=== PATIENT | female | born 1965 | race American Indian/Alaskan Native ===

== ENCOUNTER 2017-07-31 13:13 | Observation (INO) | payer MEDICAID, OTHER ==
[2017-07-31 13:49] VITALS: BMI 32.5
[2017-07-31 14:13] LABS: BASO # 0.1 K/uL (0.0-0.2); BASO % 0.8 % (0.0-2.0); EOS # 0.1 K/uL (0.0-0.7); EOS % 1.1 % (0.0-4.0); HEMOGLOBIN 14.8 g/dL (11.0-16.0); LYMPH # 3.8 K/uL (1.0-4.3); MEAN CELL VOLUME 85.3 fL (81.0-99.0); MEAN CORPUSCULAR HEMOGLOBIN 29.5 pg (27.0-31.0); MEAN CORPUSCULAR HGB CONC 34.6 g/dL (33.0-37.0); MEAN PLATELET VOLUME 7.9 fL (7.2-11.7); MONO # 0.7 K/uL (0.0-0.8); MONO % 8.2 % (0.0-10.0); NEUT # 3.9 K/uL (1.8-7.0); NEUT % 45.9 % (50.0-75.0); RBC 5.03 Mil/uL (3.80-5.20); RED CELL DISTRIBUTION WIDTH 13.8 % (11.5-14.5); WHITE BLOOD COUNT 8.6 K/uL (4.8-10.8)
[2017-07-31 14:24] LABS: ALT/SGPT 57 U/L (9-52); AST/SGOT 54 U/L (14-36); BLOOD UREA NITROGEN 15 mg/dL (7-17); CALCIUM 9.1 mg/dl (8.6-10.4); GFR AFRICAN-AMERICAN > 60; GFR NON-AFRICAN AMERICAN > 60
[2017-07-31 14:34] LABS: HCG,QUALITATIVE URINE NEGATIVE (NEGATIVE)
[2017-07-31 14:36] LABS: SQUAMOUS EPITHIAL 4 /hpf (0-5); URINE BACTERIA RARE (<OCC); URINE BILIRUBIN NEGATIVE (NEGATIVE); URINE BLOOD NEGATIVE (NEGATIVE); URINE CLARITY Hazy (Clear); URINE COLOR Yellow (YELLOW); URINE GLUCOSE (UA) NORMAL (Normal); URINE LEUKOCYTE ESTERASE 3+ Leu/uL (Negative); URINE NITRATE NEGATIVE (NEGATIVE); URINE PROTEIN NEGATIVE (NEGATIVE); URINE UROBILINOGEN NORMAL mg/dL (0.2-1.0)
[2017-07-31 14:48] LABS: BARBITURATES, UR NEGATIVE (NEGATIVE); BENZODIAZEPINES, UR NEGATIVE (NEGATIVE); PHENCYCLIDINE, UR NEGATIVE (NEGATIVE)
[2017-07-31 15:07] LABS: OPIATES, UR POSITIVE (NEGATIVE)
--- NOTE | 2017-07-31 15:18 | C.PDOC ---
History Of Present Illness 51 y/o female with PMHx of DM and HTN presents to ED requesting detox from heroin and Opioids, last used earlier today. Patient states she took her Insulin and DM medication but admits to not taking HTN medication- normally takes CLonidine 0.3 mg BID. Patient denies history of seizures or any other complaints at this time. Pt is asymptomatic; denies headache, visual disturbances, nausea, vomiting. Time Seen by Provider: 07/31/17 14:00 Chief Complaint (Nursing): Substance Abuse History Per: Patient History/Exam Limitations: no limitations Onset/Duration Of Symptoms: Days Current Symptoms Are (Timing): Still Present Suicide/Self Injury Attempted (Context): None Past Medical History Reviewed: Historical Data, Nursing Documentation, Vital Signs Vital Signs: Last Vital Signs Temp 98.1 F 08/02/17 07:25 Pulse 79 08/02/17 07:25 Resp 20 08/02/17 07:25 BP 140/107 H 08/02/17 07:35 Pulse Ox 99 08/02/17 07:25 - Medical History PMH: Bipolar Disorder, Depression, Schizophrenia Surgical History: No Surg Hx Family History: States: No Known Family Hx - Social History Hx Alcohol Use: No Hx Substance Use: Yes - Immunization History Hx Tetanus Toxoid Vaccination: No Hx Influenza Vaccination: No Hx Pneumococcal Vaccination: No Review Of Systems Constitutional: Negative for: Fever, Chills Cardiovascular: Negative for: Chest Pain Gastrointestinal: Negative for: Nausea, Vomiting Skin: Negative for: Rash Psych: Negative for: Suicidal ideation, Withdrawal Physical Exam - Physical Exam Appears: Non-toxic, No Acute Distress Skin: Warm, Dry, No Rash Head: Atraumatic, Normacephalic Eye(s): bilateral: Normal Inspection, EOMI Nose: Normal Oral Mucosa: Moist Neck: Normal ROM, Supple Chest: Symmetrical Cardiovascular: Rhythm Regular Respiratory: Normal Breath Sounds, No Accessory Muscle Use, No Rales, No Rhonchi , No Wheezing Gastrointestinal/Abdominal: Soft, No Tenderness, No Guarding, No Rebound Neurological/Psych: Oriented x3 ED Course And Treatment - Laboratory Results Result Diagrams: 07/31/17 14:09 08/01/17 08:33 O2 Sat by Pulse Oximetry: 98 (RA) Pulse Ox Interpretation: Normal Progress Note: UA, Blood work ordered. On re evaluation patient admits to having urinary frequency, dysuria but denies itching or vaginal discharge. D/W patient UA results, will be treated for UTI and is requesting for yeast prophylaxis secondary to antibiotic use. Diflucan and Macrobid ordered. Patient evaluated by crisis and discussed case with Dr. Bennett, who agreed upon admission to his service. Case discussed with Dr Dunbar, agreed upon plan and management of HTN. Disposition - Disposition Disposition: HOSPITALIZED Disposition Time: 19:00 Condition: STABLE - Clinical Impression Clinical Impression: Opioid use disorder, severe, dependence, HTN (hypertension) - PA / BRICK WASHER / Resident Statement MD/DO has reviewed & agrees with the documentation as recorded. - Scribe Statement The provider has reviewed the documentation as recorded by the Jaydaibelba Zuluaga All medical record entries made by the Stephane were at my direction and personally dictated by me. I have reviewed the chart and agree that the record accurately reflects my personal performance of the history, physical exam, medical decision making, and the department course for this patient. I have also personally directed, reviewed, and agree with the discharge instructions and disposition.
[2017-07-31] MEDS ORDERED: Buprenorphine Hydrochloride 2 mg SL ONE ×3 (18:58→20:00)
--- NOTE | 2017-07-31 19:13 | PCM.BM ---
<Arabella Mcmahan - Last Filed: 07/31/17 19:12> Treatment Plan Problems - Problems identified on initial assessmt Opiates dependence Date Initiated: 07/31/17 Time Initiated: 18:30 Assessment reference: NA Status: Active Treatment assets and liabiliti Patient Assests: cooperative, ADL independent, negotiates basic needs Patient Liabilities: substance abuse - Milieu Protocol Maintain good personal hygiene: daily Encourage regular showers, daily Remind patient to perform daily oral care, daily Assist patient to perform ADL's Maintain personal safety: every shift Educate patient to report safety concerns to staff, every shift Monitor environment for contraband/sharps Medication safety: Monitor for expected outcome, potential side effects: every shift, Assess barriers to learning: every shift, Assess readiness for medication education: every shift <Jennifer Bennett - Last Filed: 08/02/17 13:15> - Diagnosis (1) Opioid use disorder, severe, dependence Status: Acute Interventions: 08/02/17 13:15 * Assess 7x/week regarding severity of withdrawal * Educate regarding risks, benefits, side effects and alternatives of medications * Use Motivational Interviewing for abstinence * Use CBT for relapse prevention * Medication management for withdrawal symptoms * Encourage medication assisted treatment *
--- NOTE | 2017-08-01 00:55 | CP.PCM.CON ---
<Criss Hussein - Last Filed: 08/01/17 01:48> History of Present Illness - History of Present Illness History of Present Illness: Medicine Consult HPI: (During the encounter, patient was agitated and wanted to be left alone) Patient is a 51 year old AA female with past medical history of DM, HTN, Insomnia, Arthritis, herniated disc, Bipolar Disorder, depression and schizophrenia who presents to the ED requesting for heroin detox. Medicine consult was placed for hypertension refractory to medication ( Clonidine). Patient is a symptomatic and denies headache, visual disturbances, nausea, vomiting. During the encounter, patient stated that she wanted to be left alone and that she is fine; refused further questioning as well as the physical exam. PMHx: DM, HTN, Insomnia, Arthritis, herniated disc, Bipolar Disorder, Depression , Schizophrenia PSHx: Denies FHx: Unknown Medications: Patient reports that she takes medication for DM, HTN, Insomnia, but she does not recall the medications Allergies: NKDA Social Hx: admits to 1 pack of tobacco use per week, (a pint of ETOH daily as per nursing) and periodic heroin use Review of Systems - Review of Systems Review of Systems: limited due to patient's agitation and was uncooperative - Constitutional Constitutional: absent: Chills, Fever, Headache - EENT Eyes: absent: Change in Vision - Gastrointestinal Gastrointestinal: absent: Nausea, Vomiting Past Patient History - Past Social History Smoking Status: Current Some Days Smoker - CARDIAC Hx Cardiac Disorders: No Hx Hypertension: No - PULMONARY Hx Tuberculosis: Yes - NEUROLOGICAL HX Cerebrovascular Accident: No Hx Seizures: No - ENDOCRINE/METABOLIC Hx Diabetes Mellitus Type 2: Yes - HEMATOLOGICAL/ONCOLOGICAL Hx Cancer: No Hx Human Immunodeficiency Virus (HIV): No - MUSCULOSKELETAL/RHEUMATOLOGICAL Hx Falls: No - GENITOURINARY/GYNECOLOGICAL Hx Sexually Transmitted Disorders: No - PSYCHIATRIC Hx Bipolar Disorder: Yes Hx Depression: Yes Hx Schizophrenia: Yes Hx Substance Use: Yes - SURGICAL HISTORY Hx Surgeries: No Meds Allergies/Adverse Reactions: Allergies Allergy/AdvReac Type Severity Reaction Status Date / Time No Known Allergies Allergy Verified 07/31/17 13:48 - Medications Medications: Current Medications Clonidine HCl (Catapres) 0.1 mg PO Q4 PRN PRN Reason: OPiates withdrawal Last Admin: 07/31/17 20:08 Dose: 0.1 mg Hydroxyzine HCl (Atarax) 50 mg PO Q6H PRN PRN Reason: Anxiety Ibuprofen (Motrin Tab) 600 mg PO Q6H PRN PRN Reason: Pain, moderate (4-7) Metformin HCl (Glucophage) 500 mg PO BID JAYLENE Nitrofurantoin Macrocrystals (Macrobid) 100 mg PO Q12H JAYLENE Pneumococcal Polyvalent Vaccine (Pneumovax 23 Vaccine) 0.5 ml IM .ONCE ONE Stop: 08/03/17 10:01 Quetiapine Fumarate (Seroquel) 50 mg PO HS JAYLENE Last Admin: 07/31/17 22:16 Dose: Not Given Trazodone HCl (Desyrel) 100 mg PO HS PRN PRN Reason: Insomnia Physical Exam - Constitutional Additional comments: At this point of the encounter, patient wanted to be left alone and requesting for the encounter to end Results - Vital Signs Recent Vital Signs: Last Vital Signs Temp 98.6 F 07/31/17 21:28 Pulse 77 08/01/17 00:00 Resp 18 08/01/17 00:00 BP 170/127 H 08/01/17 00:00 Pulse Ox 97 08/01/17 00:00 - Labs Result Diagrams: 07/31/17 14:09 07/31/17 14:09 Labs: Laboratory Results - last 24 hr 07/31/17 07/31/17 07/31/17 14:09 14:09 14:20 WBC 8.6 RBC 5.03 Hgb 14.8 Hct 42.9 MCV 85.3 MCH 29.5 MCHC 34.6 RDW 13.8 Plt Count 320 MPV 7.9 Neut % (Auto) 45.9 L Lymph % (Auto) 44.0 H [place] % (Auto) 8.2 Eos % (Auto) 1.1 Baso % (Auto) 0.8 Neut # 3.9 Lymph # 3.8 [place] # 0.7 Eos # 0.1 Baso # 0.1 Sodium 136 Potassium 4.4 Chloride 99 Carbon Dioxide 33 H Anion Gap 9 L BUN 15 Creatinine 0.9 Est GFR ( Amer) > 60 Est GFR (Non-Af Amer) > 60 Random Glucose 94 Calcium 9.1 Total Bilirubin 0.5 AST 54 H ALT 57 H Alkaline Phosphatase 108 Total Protein 7.9 Albumin 4.0 Globulin 4.0 H Albumin/Globulin Ratio 1.0 Urine Color Yellow Urine Clarity Hazy Urine pH 5.0 Ur Specific [place] 1.023 Urine Protein Negative Urine Glucose (UA) Normal Urine Ketones Negative Urine Blood Negative Urine Nitrate Negative Urine Bilirubin Negative Urine Urobilinogen Normal Ur Leukocyte Esterase 3+ H Urine WBC (Auto) 14 H Urine RBC (Auto) 2 Ur Squamous Epith Cells 4 Urine Bacteria Rare Urine HCG, Qual Negative Urine Opiates Screen Urine Methadone Screen Ur Barbiturates Screen Ur Phencyclidine Scrn Ur Amphetamines Screen U Benzodiazepines Scrn U Oth Cocaine Metabols U Cannabinoids Screen Alcohol, Quantitative < 10 07/31/17 14:20 WBC RBC Hgb Hct MCV MCH MCHC RDW Plt Count MPV Neut % (Auto) Lymph % (Auto) [place] % (Auto) Eos % (Auto) Baso % (Auto) Neut # Lymph # [place] # Eos # Baso # Sodium Potassium Chloride Carbon Dioxide Anion Gap BUN Creatinine Est GFR ( Amer) Est GFR (Non-Af Amer) Random Glucose Calcium Total Bilirubin AST ALT Alkaline Phosphatase Total Protein Albumin Globulin Albumin/Globulin Ratio Urine Color Urine Clarity Urine pH Ur Specific [place] Urine Protein Urine Glucose (UA) Urine Ketones Urine Blood Urine Nitrate Urine Bilirubin Urine Urobilinogen Ur Leukocyte Esterase Urine WBC (Auto) Urine RBC (Auto) Ur Squamous Epith Cells Urine Bacteria Urine HCG, Qual Urine Opiates Screen Positive H Urine Methadone Screen Negative Ur Barbiturates Screen Negative Ur Phencyclidine Scrn Negative Ur Amphetamines Screen Negative U Benzodiazepines Scrn Negative U Oth Cocaine Metabols Negative U Cannabinoids Screen Negative Alcohol, Quantitative Assessment & Plan (1) Elevated blood pressure reading Assessment and Plan: possibly secondary to substance withdrawal * Labetalol 100mg PO once * Clonidine 0.1mg PO Q4H * Will reevaluate in treat plan am when patient is more cooperative Status: Acute (2) Substance abuse Assessment and Plan: Subtex detox Status: Acute (3) Insomnia Assessment and Plan: Trazadone 100mg PO HS Seroquel 50mg PO HS Status: Acute (4) Urinary tract infection Assessment and Plan: Macrobid 100mg PO Q12H Status: Acute (5) Diabetes mellitus Assessment and Plan: Metformin 500ng PO BID Status: Acute (6) History of anxiety disorder Assessment and Plan: Hydroxyzine 50mg PO Q6H PRN Case and plans discussed with attending, Dr. Elizabeth Status: Acute <Adithya Elizabeth - Last Filed: 08/01/17 06:06> Meds - Medications Medications: Current Medications Clonidine HCl (Catapres) 0.1 mg PO Q4 PRN PRN Reason: OPiates withdrawal Last Admin: 07/31/17 20:08 Dose: 0.1 mg Hydroxyzine HCl (Atarax) 50 mg PO Q6H PRN PRN Reason: Anxiety Last Admin: 08/01/17 01:05 Dose: 50 mg Ibuprofen (Motrin Tab) 600 mg PO Q6H PRN PRN Reason: Pain, moderate (4-7) Metformin HCl (Glucophage) 500 mg PO BID JAYLENE Nitrofurantoin Macrocrystals (Macrobid) 100 mg PO Q12H JAYLENE Pneumococcal Polyvalent Vaccine (Pneumovax 23 Vaccine) 0.5 ml IM .ONCE ONE Stop: 08/03/17 10:01 Quetiapine Fumarate (Seroquel) 50 mg PO HS JAYLENE Last Admin: 07/31/17 22:16 Dose: Not Given Trazodone HCl (Desyrel) 100 mg PO HS PRN PRN Reason: Insomnia Last Admin: 08/01/17 01:05 Dose: 100 mg Results - Vital Signs Recent Vital Signs: Last Vital Signs Temp 98.6 F 07/31/17 21:28 Pulse 77 08/01/17 00:00 Resp 18 08/01/17 00:00 BP 170/127 H 08/01/17 00:00 Pulse Ox 97 08/01/17 00:00 - Labs Result Diagrams: 07/31/17 14:09 07/31/17 14:09 Labs: Laboratory Results - last 24 hr 07/31/17 07/31/17 07/31/17 14:09 14:09 14:20 WBC 8.6 RBC 5.03 Hgb 14.8 Hct 42.9 MCV 85.3 MCH 29.5 MCHC 34.6 RDW 13.8 Plt Count 320 MPV 7.9 Neut % (Auto) 45.9 L Lymph % (Auto) 44.0 H [place] % (Auto) 8.2 Eos % (Auto) 1.1 Baso % (Auto) 0.8 Neut # 3.9 Lymph # 3.8 [place] # 0.7 Eos # 0.1 Baso # 0.1 Sodium 136 Potassium 4.4 Chloride 99 Carbon Dioxide 33 H Anion Gap 9 L BUN 15 Creatinine 0.9 Est GFR ( Amer) > 60 Est GFR (Non-Af Amer) > 60 Random Glucose 94 Calcium 9.1 Total Bilirubin 0.5 AST 54 H ALT 57 H Alkaline Phosphatase 108 Total Protein 7.9 Albumin 4.0 Globulin 4.0 H Albumin/Globulin Ratio 1.0 Urine Color Yellow Urine Clarity Hazy Urine pH 5.0 Ur Specific [place] 1.023 Urine Protein Negative Urine Glucose (UA) Normal Urine Ketones Negative Urine Blood Negative Urine Nitrate Negative Urine Bilirubin Negative Urine Urobilinogen Normal Ur Leukocyte Esterase 3+ H Urine WBC (Auto) 14 H Urine RBC (Auto) 2 Ur Squamous Epith Cells 4 Urine Bacteria Rare Urine HCG, Qual Negative Urine Opiates Screen Urine Methadone Screen Ur Barbiturates Screen Ur Phencyclidine Scrn Ur Amphetamines Screen U Benzodiazepines Scrn U Oth Cocaine Metabols U Cannabinoids Screen Alcohol, Quantitative < 10 07/31/17 14:20 WBC RBC Hgb Hct MCV MCH MCHC RDW Plt Count MPV Neut % (Auto) Lymph % (Auto) [place] % (Auto) Eos % (Auto) Baso % (Auto) Neut # Lymph # [place] # Eos # Baso # Sodium Potassium Chloride Carbon Dioxide Anion Gap BUN Creatinine Est GFR ( Amer) Est GFR (Non-Af Amer) Random Glucose Calcium Total Bilirubin AST ALT Alkaline Phosphatase Total Protein Albumin Globulin Albumin/Globulin Ratio Urine Color Urine Clarity Urine pH Ur Specific [place] Urine Protein Urine Glucose (UA) Urine Ketones Urine Blood Urine Nitrate Urine Bilirubin Urine Urobilinogen Ur Leukocyte Esterase Urine WBC (Auto) Urine RBC (Auto) Ur Squamous Epith Cells Urine Bacteria Urine HCG, Qual Urine Opiates Screen Positive H Urine Methadone Screen Negative Ur Barbiturates Screen Negative Ur Phencyclidine Scrn Negative Ur Amphetamines Screen Negative U Benzodiazepines Scrn Negative U Oth Cocaine Metabols Negative U Cannabinoids Screen Negative Alcohol, Quantitative Assessment & Plan - Date & Time Date: 08/01/17 (I have seen and examined the patient. I agree with the findings and plan of care as documented by Dr. Hussein. Patient with elevated BP reading. Continue Clonidine and add Labetalol. Adjust as necessary. Continue home med for history of diabetes. Macrobid for UTI. Monitor for acute changes.) Time: 06:05 Attending/Attestation - Attestation I have personally seen and examined this patient.: Yes I have fully participated in the care of the patient.: Yes I have reviewed all pertinent clinical information: Yes
[2017-08-01 09:14] LABS: ALBUMIN 3.6 g/dL (3.5-5.0); ALT/SGPT 49 U/L (9-52); AST/SGOT 43 U/L (14-36); BLOOD UREA NITROGEN 13 mg/dL (7-17); CALCIUM 8.7 mg/dl (8.6-10.4); GFR AFRICAN-AMERICAN > 60; GFR NON-AFRICAN AMERICAN > 60
[2017-08-01] MEDS ORDERED: Buprenorphine Hydrochloride 2 mg SL SCH (10:00)
--- NOTE | 2017-08-01 12:59 | CP.PCM.PN ---
Subjective - Date & Time of Evaluation Date of Evaluation: 08/01/17 Time of Evaluation: 08:55 - Subjective Subjective: Dr. Gomez's Service, [place]ino Wilkerson PGY-1 Patient was seen and examined at bedside. Per nursing no acute events occurred overnight. The patient is tolerating her diet with no complaints. The patient is passing her bowels with no issue. The patient denies any chest pain, lightheadedness, dizziness, changes in vision, fevers, chills, abdominal pain, or any other complaints. Objective - Vital Signs/Intake and Output Vital Signs (last 24 hours): Temp Pulse Resp BP Pulse Ox 98.2 F 88 14 171/115 H 98 08/01/17 06:07 08/01/17 12:11 08/01/17 06:07 08/01/17 12:11 08/01/17 06:07 - Medications Medications: Current Medications Buprenorphine HCl (Subutex) 8 mg SL DAILY [facility] PRN Reason: Taper Stop: 08/05/17 09:59 Last Admin: 08/01/17 09:09 Dose: 8 mg Clonidine HCl (Catapres) 0.3 mg PO BID [facility] Hydrochlorothiazide (Microzide) 12.5 mg PO DAILY [facility] Hydroxyzine HCl (Atarax) 50 mg PO Q6H PRN PRN Reason: Anxiety Last Admin: 08/01/17 01:05 Dose: 50 mg Ibuprofen (Motrin Tab) 600 mg PO Q6H PRN PRN Reason: Pain, moderate (4-7) Lisinopril (Zestril) 5 mg PO DAILY [facility] Metformin HCl (Glucophage) 500 mg PO BID [facility] Last Admin: 08/01/17 09:09 Dose: 500 mg Nitrofurantoin Macrocrystals (Macrobid) 100 mg PO Q12H [facility] Last Admin: 08/01/17 09:09 Dose: 100 mg Pneumococcal Polyvalent Vaccine (Pneumovax 23 Vaccine) 0.5 ml IM .ONCE ONE Stop: 08/03/17 10:01 Quetiapine Fumarate (Seroquel) 50 mg PO HS [facility] Last Admin: 07/31/17 22:16 Dose: Not Given Trazodone HCl (Desyrel) 100 mg PO HS PRN PRN Reason: Insomnia Last Admin: 08/01/17 01:05 Dose: 100 mg - Labs Labs: 07/31/17 14:09 08/01/17 08:33 - Head Exam Head Exam: ATRAUMATIC, NORMAL INSPECTION, NORMOCEPHALIC - Eye Exam Eye Exam: EOMI, Normal appearance, PERRL. absent: Periorbital tenderness Pupil Exam: NORMAL ACCOMODATION, PERRL. absent: Irregular, Unequal - ENT Exam ENT Exam: Mucous Membranes Moist, Normal Oropharynx - Neck Exam Neck Exam: Normal Inspection. absent: Lymphadenopathy, Thyromegaly - Respiratory Exam Respiratory Exam: Clear to Ausculation Bilateral, NORMAL BREATHING PATTERN. absent: Chest Wall Tenderness, Prolonged Expiratory Phase, Respiratory Distress - Cardiovascular Exam Cardiovascular Exam: REGULAR RHYTHM, RRR, +S1, +S2. absent: Gallop, Rubs - GI/Abdominal Exam GI & Abdominal Exam: Soft, Normal Bowel Sounds. absent: Rigid, Hyperactive Bowel Sounds - Extremities Exam Extremities Exam: Full ROM. absent: Pedal Edema - Back Exam Back Exam: NORMAL INSPECTION. absent: CVA tenderness (L), CVA tenderness (R), paraspinal tenderness - Neurological Exam Neurological Exam: Alert, Awake, CN II-XII Intact, Normal Gait, Oriented x3 - Psychiatric Exam Psychiatric exam: Normal Affect, Normal Mood Assessment and Plan - Assessment and Plan (Free Text) Plan: Elevated blood pressure reading possibly secondary to substance withdrawal * Labetalol 100mg PO once * Heart healthy diet :(2gm Na restriction * Lisinopril 5mg PO Daily * Hydrochlorothiazide 12.5mg PO Daily * Clonidine 0.3mg BID * Holding parameters for SBP <110 or HR <60. * Will reevaluate in treat plan am when patient is more cooperative * Attempted to contact PMD Dr. Randy Randall and couldn't get throught. Will attempt again in the A.M. Status: Acute Substance abuse Assessment and Plan: Subtex detox Status: Acute Insomnia Assessment and Plan: Trazadone 100mg PO HS Seroquel 50mg PO HS Status: Acute Urinary tract infection Assessment and Plan: Patient asymptomatic at this time. Would recommend discontinuation at this time. Macrobid 100mg PO Q12H Status: Acute Diabetes mellitus Assessment and Plan: Continue Metformin 500ng PO BID Status: Acute History of anxiety disorder Assessment and Plan: Hydroxyzine 50mg PO Q6H PRN Disposition: Patient blood pressure uncontrolled. Transferred to Telemetry for observation. Hydralazine 10mg IVP Q6 PRN added.
--- NOTE | 2017-08-01 13:05 | PCM.PSYCH ---
Initial Psychiatric Evaluation - Initial Psychiatric Evaluation Type of Admission: Voluntary Legal Status: Capacity Chief Complaint (in patient's own words): "I need to stop" History of Present Illness and Precipitating Events: The patient is seen, chart reviewed and case discussed. This is a 51-year-old -[place] female, single with 2 children both adults, the patient is on SSI due to psychiatric illness and lives with her uncle and out. The patient is here for heroin detox; she is using 15 bags intranasally since age 16. She denies alcohol, cocaine and other drugs but smokes half pack per day cigarettes. She was in detox 3 times and rehabilitation once. She used methadone "years ago " The patient is somewhat labile and a little bit hypomanic but she denies any major psych symptoms; no suicidal or homicidal thoughts and no AVH/delusions. She is not on any medications because she says she sometimes takes them. Past psych history: Diagnosed with schizoaffective disorder and had one admission. She remembers Seroquel as a medication she was given. Family psych history: Sr. had psychiatric problems and use drugs. Medical history: Hernia, high blood pressure, rheumatoid arthritis, diabetes and obesity. Current Medications: Active Medications Generic Name Dose Route Start Last Admin Trade Name Freq PRN Reason Stop Dose Admin Buprenorphine HCl 8 mg 08/01/17 10:00 08/01/17 09:09 Subutex SL 08/05/17 09:59 8 mg DAILY JAYLENE Administration Taper Clonidine HCl 0.3 mg 08/02/17 10:00 Catapres PO BID JAYLENE Hydrochlorothiazide 12.5 mg 08/01/17 13:00 Microzide PO DAILY JAYLENE Hydroxyzine HCl 50 mg 07/31/17 18:19 08/01/17 01:05 Atarax PO 50 mg Q6H PRN Administration Anxiety Ibuprofen 600 mg 07/31/17 21:40 Motrin Tab PO Q6H PRN Pain, moderate (4-7) Lisinopril 5 mg 08/01/17 13:00 Zestril PO DAILY JAYLENE Metformin HCl 500 mg 08/01/17 10:00 08/01/17 09:09 Glucophage PO 500 mg BID JAYLENE Administration Nitrofurantoin Macrocrystals 100 mg 08/01/17 09:00 08/01/17 09:09 Macrobid PO 100 mg Q12H JAYLENE Administration Pneumococcal Polyvalent Vaccine 0.5 ml 08/03/17 10:00 Pneumovax 23 Vaccine IM 08/03/17 10:01 .ONCE ONE Quetiapine Fumarate 50 mg 07/31/17 22:00 07/31/17 22:16 Seroquel PO Not Given HS JAYLENE Trazodone HCl 100 mg 07/31/17 22:00 08/01/17 01:05 Desyrel PO 100 mg HS PRN Administration Insomnia Past Psychiatric History - Past Psychiatric History Previous Treatment History: Inpatient Pertinent Medical Hx (Current Medical&Sleep Prob, Allergies): Allergies Allergy/AdvReac Type Severity Reaction Status Date / Time No Known Allergies Allergy Verified 07/31/17 13:48 Insulin Regular [HumuLIN R] 25 unit SC DAILY 07/31/17 Review of Systems - Neurological Neurological: UNREMARKABLE - Psychiatric Psychiatric: Abnormal Sleep Pattern, Anxiety, Change in Appetite, Difficulty Concentrating, Irritability. absent: Hallucinations, Homicidal Ideation, Suicidal Ideation Mental Status Examination - Personal Presentation Personal Presentation: Looks stated age - Affect Affect: Constricted - Motor Activity Motor Activity: Calm - Reliability in Providing Information Reliability in Providing Information: Fair - Speech Speech: Disorganized (slightly), Tangential - Mood Mood: Other (labile) - Formal Thought Process Formal Thought Process: No Impairment - Cognitive Functions Orientation: Person, Place, Situation, Time Sensorium: Alert Attention/Concentration: Easily distracted Estimate of Intelligence: Average Judgement: Intact, as evidence by: Insight regarding need for hospitalization Memory: Recent impaired, as evidence by: Inability to recall events of the day, Remote impaired as evidenced by: Inability to recall sig life events - Risk Risk: Withdrawal, Diminished functioning - Strength & Assets Inventory Strength & Assets Inventory: Family support, Cooperative - Limitations Limitations: Other DSM 5 DX - DSM 5 DSM 5 Diagnosis: Opioid withdrawal Opioid use d/o -severe Schizoaffective d/o - Recommended/Plan of Treatment Treatment Recommendations and Plan of Treatment: Subutex detox Gabapentin for augmentation Seroquel to start medical consult for BP and other issues As needed medications All risks, benefits and alternatives of the meds discussed, and the pt agreed and understood. Attend groups and activities Supportive therapy and psychoeducation IA for abstinence CBT for relapse prevention Encourage MAT Refer to rehab or IOP, and self-help groups Smoking cessation with IA Nicotine patch if needed 34 min Projected ELOS: 5 days - Smoking Cessation Smoking Cessation Initiated: Yes
[2017-08-01 23:30] VITALS: RESP 20
[2017-08-02 02:00] VITALS: TEMP 98.1
[2017-08-02 07:46] VITALS: PULSE 79
[2017-08-02 07:47] VITALS: BP 140/107
--- NOTE | 2017-08-02 16:32 | CP.PCM.DIS ---
Provider - Provider Date of Admission: 07/31/17 17:32 Attending physician: Jennifer Bennett MD Consults: Dr. Gomez: Medicine Time Spent in preparation of Discharge (in minutes): 45 Hospital Course - Lab Results Lab Results: Most Recent Lab Values WBC 8.6 K/uL (4.8-10.8) 07/31/17 14:09 RBC 5.03 Mil/uL (3.80-5.20) 07/31/17 14:09 Hgb 14.8 g/dL (11.0-16.0) 07/31/17 14:09 Hct 42.9 % (34.0-47.0) 07/31/17 14:09 MCV 85.3 fL (81.0-99.0) 07/31/17 14:09 MCH 29.5 pg (27.0-31.0) 07/31/17 14:09 MCHC 34.6 g/dL (33.0-37.0) 07/31/17 14:09 RDW 13.8 % (11.5-14.5) 07/31/17 14:09 Plt Count 320 K/uL (130-400) 07/31/17 14:09 MPV 7.9 fL (7.2-11.7) 07/31/17 14:09 Neut % (Auto) 45.9 % (50.0-75.0) L 07/31/17 14:09 Lymph % (Auto) 44.0 % (20.0-40.0) H 07/31/17 14:09 [place] % (Auto) 8.2 % (0.0-10.0) 07/31/17 14:09 Eos % (Auto) 1.1 % (0.0-4.0) 07/31/17 14:09 Baso % (Auto) 0.8 % (0.0-2.0) 07/31/17 14:09 Neut # 3.9 K/uL (1.8-7.0) 07/31/17 14:09 Lymph # 3.8 K/uL (1.0-4.3) 07/31/17 14:09 [place] # 0.7 K/uL (0.0-0.8) 07/31/17 14:09 Eos # 0.1 K/uL (0.0-0.7) 07/31/17 14:09 Baso # 0.1 K/uL (0.0-0.2) 07/31/17 14:09 Sodium 133 mmol/L (132-148) 08/01/17 08:33 Potassium 3.9 mmol/L (3.6-5.2) 08/01/17 08:33 Chloride 96 mmol/L (98-107) L 08/01/17 08:33 Carbon Dioxide 29 mmol/L (22-30) 08/01/17 08:33 Anion Gap 11 (10-20) 08/01/17 08:33 BUN 13 mg/dL (7-17) 08/01/17 08:33 Creatinine 0.7 mg/dL (0.7-1.2) 08/01/17 08:33 Est GFR ( Amer) > 60 08/01/17 08:33 Est GFR (Non-Af Amer) > 60 08/01/17 08:33 POC Glucose (mg/dL) 127 mg/dL (65-110) H 08/02/17 06:18 Random Glucose 152 mg/dL (65-105) H 08/01/17 08:33 Hemoglobin A1c 7.6 % (4.2-6.5) H 08/01/17 08:33 Calcium 8.7 mg/dl (8.6-10.4) 08/01/17 08:33 Total Bilirubin 0.4 mg/dL (0.2-1.3) 08/01/17 08:33 AST 43 U/L (14-36) H D 08/01/17 08:33 ALT 49 U/L (9-52) 08/01/17 08:33 Alkaline Phosphatase 100 U/L (38-126) 08/01/17 08:33 Total Protein 7.3 g/dL (6.3-8.3) 08/01/17 08:33 Albumin 3.6 g/dL (3.5-5.0) 08/01/17 08:33 Globulin 3.7 gm/dL (2.2-3.9) 08/01/17 08:33 Albumin/Globulin Ratio 1.0 (1.0-2.1) 08/01/17 08:33 Urine Color Yellow (YELLOW) 07/31/17 14:20 Urine Clarity Hazy (Clear) 07/31/17 14:20 Urine pH 5.0 (5.0-8.0) 07/31/17 14:20 Ur Specific [place] 1.023 (1.003-1.030) 07/31/17 14:20 Urine Protein Negative mg/dL (NEGATIVE) 07/31/17 14:20 Urine Glucose (UA) Normal mg/dL (Normal) 07/31/17 14:20 Urine Ketones Negative mg/dL (NEGATIVE) 07/31/17 14:20 Urine Blood Negative (NEGATIVE) 07/31/17 14:20 Urine Nitrate Negative (NEGATIVE) 07/31/17 14:20 Urine Bilirubin Negative (NEGATIVE) 07/31/17 14:20 Urine Urobilinogen Normal mg/dL (0.2-1.0) 07/31/17 14:20 Ur Leukocyte Esterase 3+ [place]/uL (Negative) H 07/31/17 14:20 Urine WBC (Auto) 14 /hpf (0-5) H 07/31/17 14:20 Urine RBC (Auto) 2 /hpf (0-3) 07/31/17 14:20 Ur Squamous Epith Cells 4 /hpf (0-5) 07/31/17 14:20 Urine Bacteria Rare (<OCC) 07/31/17 14:20 Urine HCG, Qual Negative (NEGATIVE) 07/31/17 14:20 Urine Opiates Screen Positive (NEGATIVE) H 07/31/17 14:20 Urine Methadone Screen Negative (NEGATIVE) 07/31/17 14:20 Ur Barbiturates Screen Negative (NEGATIVE) 07/31/17 14:20 Ur Phencyclidine Scrn Negative (NEGATIVE) 07/31/17 14:20 Ur Amphetamines Screen Negative (NEGATIVE) 07/31/17 14:20 U Benzodiazepines Scrn Negative (NEGATIVE) 07/31/17 14:20 U Oth Cocaine Metabols Negative (NEGATIVE) 07/31/17 14:20 U Cannabinoids Screen Negative (NEGATIVE) 07/31/17 14:20 Alcohol, Quantitative < 10 mg/dl (0-10) 07/31/17 14:09 - Hospital Course Hospital Course: Discharge Summary PMD: Consults: Psych (Dr. Bennett) PRINCIPAL DISCHARGE DIAGNOSES: Heroin detox CC: heroin detox HISTORY OF PRESENT ILLNESS: (During the encounter, patient was agitated and wanted to be left alone) Patient is a 51 year old AA female with past medical history of DM, HTN, Insomnia, Arthritis, herniated disc, Bipolar Disorder, depression and schizophrenia who presents to the ED requesting for heroin detox. Medicine consult was placed for hypertension refractory to medication ( Clonidine). Patient is a symptomatic and denies headache, visual disturbances, nausea, vomiting. During the encounter, patient stated that she wanted to be left alone and that she is fine; refused further questioning as well as the physical exam. PMHx: DM, HTN, Insomnia, Arthritis, herniated disc, Bipolar Disorder, Depression , Schizophrenia PSHx: Denies FHx: Unknown Medications: Patient reports that she takes medication for DM, HTN, Insomnia, but she does not recall the medications Allergies: NKDA Social Hx: admits to 1 pack of tobacco use per week, (a pint of ETOH daily as per nursing) and periodic heroin use SUMMARY OF COURSE: Lisa Yeboah is a 51-year-old AA female who was admitted to [facility] [place] on 07/31/2017-08/02/2017 for heroin detox. Her past medical history of note includes DM, HTN, insomnia, arthritis, herniated disc, bipolar disorder, depression and schizophrenia. While at the hospital, she was admitted to the detox unit for heroin detox. She was then transferred to the medical floor due to symptomatic hypertension refractory to medication. She was started on new blood pressure medications in the hospital which reduced her blood pressure. She signed out against medical advice because she says that her daughters birthday is today and that her daughter is having a big birthday constitution party tomorrow. She is to follow up outpatient for new blood pressure medication and monitoring. She is advised to stop using heroin and attend Narcotics Anonymous. Discharge Hotline Numbers: [place] [facility] 24 Hour Hotline: 844-773 HELP (8207) AA- Alcoholics Anonymous 24 Hour Hotline: 7-670-151- 2294 NA- Narcotics Anonymous 24 Hour Hotline: [place] [facility] Hotline - [place] Quitline If needed you can reach the detox unit at Avoid all mood and mind altering substances including alcohol. Make every effort to make 90 meetings in 90 days and obtain a sponsor and get involved in 12 step recovery. Follow up with you primary doctor for your medical needs Discharge Medications: Nutrition: Eat balanced meals incorporating fruits, vegetables and protein. Drink plenty of water throughout the day at least 8 to 10 cups. Sleep is extremely important in your recovery. Follow Up Appointments: [facility] [address] [facility] [address] [employer] Discharge Exam - Head Exam Head Exam: ATRAUMATIC, NORMAL INSPECTION, NORMOCEPHALIC - Eye Exam Eye Exam: EOMI, Normal appearance, PERRL. absent: Periorbital tenderness Pupil Exam: NORMAL ACCOMODATION, PERRL. absent: Irregular, Unequal - ENT Exam ENT Exam: Mucous Membranes Moist, Normal Oropharynx - Respiratory Exam Respiratory Exam: Clear to PA & Lateral, NORMAL BREATHING PATTERN, UNREMARKABLE. absent: Rales, Rhonchi - Cardiovascular Exam Cardiovascular Exam: REGULAR RHYTHM, RRR, +S1, +S2. absent: Rubs - GI/Abdominal Exam GI & Abdominal Exam: Normal Bowel Sounds, Unremarkable. absent: Distended, Hypoactive Bowel Sounds, Organomegaly - Extremities Exam Extremities exam: full ROM - Back Exam Back exam: NORMAL INSPECTION. absent: CVA tenderness (L), CVA tenderness (R), paraspinal tenderness - Neurological Exam Neurological exam: Alert, CN II-XII Intact, Oriented x3 - Psychiatric Exam Psychiatric exam: Normal Affect, Normal Mood - Skin Skin Exam: Dry, Intact, Normal Color, Warm Discharge Plan - Follow Up Plan Condition: GOOD Disposition: AGAINST MEDICAL ADVICE Additional Instructions: Discharge Hotline Numbers: [place] [facility] 24 Hour Hotline: 2- HELP (5315) AA- Alcoholics Anonymous 24 Hour Hotline: 3-511-490- 8010 NA- Narcotics Anonymous 24 Hour Hotline: [facility] Hotline - [place] Quitline If needed you can reach the detox unit at Avoid all mood and mind altering substances including alcohol. Make every effort to make 90 meetings in 90 days and obtain a sponsor and get involved in 12 step recovery. Follow up with you primary doctor for your medical needs Discharge Medications: Nutrition: Eat balanced meals incorporating fruits, vegetables and protein. Drink plenty of water throughout the day at least 8 to 10 cups. Sleep is extremely important in your recovery. Follow Up Appointments: Pt has an appointment on [address] [address] [place]
[2017-08-03] MEDS ORDERED: Influenza Vaccine 60 mcg/0.5 mL SYR (4YR UP) IM ONE (10:00)
[2017-08-03] MEDS ORDERED: Pneumococcal 23-Valent Vaccine IM ONE (10:00)
[2017-08-04 13:17] VITALS: O2SAT 98
== END 2017-08-02 08:27 | disposition left against medical advice (07) ==
LOC: C.ER 13:13 → OBSVTOIN 17:32 → C.7D 17:32 → INTOOBSV 17:32 → C.6T 08-01 19:43
PROVIDERS: ADMIT Hospitalist; ATTEND Psychiatry & Neurology Psychiatry
DX: F11.23 Opioid dependence with withdrawal (principal); E11.9 Type 2 diabetes mellitus without complications; F17.210 Nicotine dependence, cigarettes, uncomplicated; F25.9 Schizoaffective disorder, unspecified; F31.9 Bipolar disorder, unspecified; G47.00 Insomnia, unspecified; I10 Essential (primary) hypertension; M06.9 Rheumatoid arthritis, unspecified; N39.0 Urinary tract infection, site not specified; Z86.11 Personal history of tuberculosis

== ENCOUNTER 2018-09-04 09:21 | Inpatient (IN) | payer OTHER, MEDICAID | END 2018-09-09 12:50 | disposition home or self-care (01) | DRG 744 | LOC: C.ER 09:21 → C.9E 14:04 → C.3T 14:52 → C.9E 15:02 → C.5S 15:18 → C.7D 16:01 | PROC: HZ52ZZZ Individual Psychotherapy for Substance Abuse Treatment, Cognitive-Behavioral (ICD-10-PCS; principal; 2018-09-04) | PROC: HZ2ZZZZ Detoxification Services for Substance Abuse Treatment (ICD-10-PCS; 2018-09-04) | PROC: HZ59ZZZ Individual Psychotherapy for Substance Abuse Treatment, Supportive (ICD-10-PCS; 2018-09-04) | PROC: HZ56ZZZ Individual Psychotherapy for Substance Abuse Treatment, Psychoeducation (ICD-10-PCS; 2018-09-04) | PROC: HZ42ZZZ Group Counseling for Substance Abuse Treatment, Cognitive-Behavioral (ICD-10-PCS; 2018-09-04) | PROC: HZ46ZZZ Group Counseling for Substance Abuse Treatment, Psychoeducation (ICD-10-PCS; 2018-09-04) | PROC: GZHZZZZ Group Psychotherapy (ICD-10-PCS; 2018-09-04) | PROC: GZ58ZZZ Individual Psychotherapy, Cognitive-Behavioral (ICD-10-PCS; 2018-09-04) | PROC: GZ56ZZZ Individual Psychotherapy, Supportive (ICD-10-PCS; 2018-09-04) | DX: F11.23 Opioid dependence with withdrawal (principal); N39.0 Urinary tract infection, site not specified; F10.230 Alcohol dependence with withdrawal, uncomplicated; F13.20 Sedative, hypnotic or anxiolytic dependence, uncomplicated; F14.20 Cocaine dependence, uncomplicated; F31.9 Bipolar disorder, unspecified; E11.9 Type 2 diabetes mellitus without complications; I16.0 Hypertensive urgency; I10 Essential (primary) hypertension; Z86.11 Personal history of tuberculosis; G47.00 Insomnia, unspecified; M19.90 Unspecified osteoarthritis, unspecified site; F17.210 Nicotine dependence, cigarettes, uncomplicated; Z79.4 Long term (current) use of insulin ==